=== PATIENT | female | born 1960 | race Caucasian/White ===

== ENCOUNTER → 2016-09-06 | Outpatient (CLI) | payer MEDICARE, BC ==
[~2016-09-06] MED LIST: ALBU90AE PO; CIPR500T87 PO; IPRA3AMP NEB; LETR2.5T PO; NICO1PAT4 TD; PALB125C PO; PARO10TA3 PO; PRED20TA PO; TIOT18CA INH
== END | disposition home or self-care (01) ==
LOC: ROC 12:48
PROVIDERS: ATTEND Radiology Radiation Oncology
DX: C50.912 Malignant neoplasm of unspecified site of left female breast (principal)
CPT/HCPCS: G0463

== ENCOUNTER → 2016-10-05 | Outpatient (CLI) | payer MEDICARE, BC | END | disposition home or self-care (01) | LOC: ROC 12:56 | PROVIDERS: ATTEND Radiology Radiation Oncology | DX: C50.412 Malignant neoplasm of upper-outer quadrant of left female breast (principal) | CPT/HCPCS: G0463 ==

== ENCOUNTER 2016-11-10 14:46 | Inpatient (IN) | payer MEDICARE, BC ==
[~2016-11-10] VITALS: Ht 154.9 cm; Wt 112.8 kg
[2016-11-10] MEDS ORDERED: CAPE500T24 PO (15:23)
[2016-11-10] MEDS ORDERED: ZOLP10TA PO (15:23)
[2016-11-10] MEDS ORDERED: FLUT200B IH (15:23)
[2016-11-10] MEDS ORDERED: DOXY50CA42 PO (15:23)
[2016-11-10] MEDS ORDERED: UMEC1DIS INH (15:23)
[2016-11-10] MEDS ORDERED: PRED-402 PO (15:23)
[2016-11-10] MEDS ORDERED: SODIUM CHLORIDE FLUSH 10ML SYR IVF ONE (15:30)
[2016-11-10] MEDS ORDERED: methylPREDNISolone SOD SUCC 125 MG/2 ML IVPush ONE (15:30)
[2016-11-10] MEDS ORDERED: methylPREDNISolone SOD SUCC 125 MG/2 ML ONE (15:32)
[2016-11-10 15:55] LABS: IS PT STATUS REG ER OR PRE ER? YES
[2016-11-10] MEDS ORDERED: ALBUTEROL/IPRATROPIUM 2.5MG/0.5MG, 3 ML ONE (17:07)
[2016-11-10 17:09] LABS: BLOOD UREA NITROGEN 10 mg/dL (7-18)
[2016-11-10] MEDS ORDERED: GUAIFENESIN/DM 200-20MG, 10ML UDC PO PRN (17:30)
[2016-11-10] MEDS ORDERED: BISACODYL 10 MG SUPP PR PRN (17:30)
[2016-11-10] MEDS ORDERED: ONDANSETRON 2MG/ML, 2ML IVPush PRN (17:30)
[2016-11-10] MEDS ORDERED: DOCUSATE 100 MG CAPSULE PO PRN (17:30)
[2016-11-10] MEDS ORDERED: POLYETHYLENE GLYCOL 17 GM PACKET PO PRN (17:30)
[2016-11-10] MEDS ORDERED: HYDROcodone/APAP 5/325 TABLET PO PRN (17:30)
[2016-11-10] MEDS ORDERED: ALBUTEROL/IPRATROPIUM 2.5MG/0.5MG, 3 ML NPPB PRN (18:00)
[2016-11-10] MEDS: ALBUTEROL/IPRATROPIUM 2.5MG/0.5MG, 3 ML NPPB SCH ×2 (18:00→22:00)
[2016-11-10 19:28] VITALS: BP 110/75
[2016-11-10] MEDS: DOXYCYCLINE 100 MG in DEXTROSE 5% 250 ML IV SCH (19:55)
[2016-11-10] MEDS: methylPREDNISolone SOD SUCC 125 MG/2 ML IVPush SCH (19:56)
[2016-11-10] MEDS: NICOTINE 21 MG/24 HR PATCH.TD24 TD SCH (19:58)
[2016-11-10] MEDS: ENOXAPARIN 40 MG/0.4 ML SQ SCH (19:58)
[2016-11-10] MEDS: ZOLPIDEM 10MG TABLET PO PRN (22:40)
[2016-11-11] MEDS: methylPREDNISolone SOD SUCC 125 MG/2 ML IVPush SCH ×4 (02:40→19:50)
[2016-11-11 03:04] VITALS: BP 106/68
[2016-11-11 06:23] LABS: ASPARTATE AMINO TRANSFERASE 23 U/L (15-37); BLOOD UREA NITROGEN 12 mg/dL (7-18)
[2016-11-11] MEDS: ALBUTEROL/IPRATROPIUM 2.5MG/0.5MG, 3 ML NPPB SCH ×6 (07:45→22:00)
[2016-11-11] MEDS: DOXYCYCLINE 100 MG in DEXTROSE 5% 250 ML IV SCH ×2 (08:42→19:49)
[2016-11-11] MEDS: SENNA/DOCUSATE TABLET PO SCH (08:42)
[2016-11-11] MEDS: PAROXETINE 10 MG TABLET PO SCH (08:42)
[2016-11-11] MEDS: TEMPLATE NON-FORMULARY MED. (Umeclidinium Brm/Vilanterol Tr (Anoro Ellipta 62.5-25 Mcg Inh INH SCH (08:43)
[2016-11-11] MEDS: FLUTICASONE FUROATE 200MCG/INH INH SCH (09:00)
[2016-11-11 13:52] VITALS: BP 130/58
[2016-11-11] MEDS ORDERED: ALBUTEROL/IPRATROPIUM 2.5MG/0.5MG, 3 ML ONE ×2 (18:11→21:51)
[2016-11-11] MEDS ORDERED: ALBUTEROL/IPRATROPIUM 2.5MG/0.5MG, 3 ML NPPB SCH (18:30)
[2016-11-11] MEDS ORDERED: ALBUTEROL/IPRATROPIUM 2.5MG/0.5MG, 3 ML NPPB PRN ×2 (18:30→22:00)
[2016-11-11 19:39] VITALS: BP 106/59
[2016-11-11] MEDS: GUAIFENESIN 200 MG TABLET PO SCH (19:50)
[2016-11-11] MEDS: ENOXAPARIN 40 MG/0.4 ML SQ SCH (19:50)
[2016-11-11] MEDS: NICOTINE 21 MG/24 HR PATCH.TD24 TD SCH (19:51)
[2016-11-11] MEDS: ZOLPIDEM 10MG TABLET PO PRN (22:27)
[2016-11-12 01:01] VITALS: BP 109/69
[2016-11-12] MEDS: methylPREDNISolone SOD SUCC 125 MG/2 ML IVPush SCH ×5 (02:23→23:24)
[2016-11-12] MEDS: ALBUTEROL/IPRATROPIUM 2.5MG/0.5MG, 3 ML NPPB SCH ×6 (06:52→19:10)
[2016-11-12 07:20] VITALS: BP 95/63
[2016-11-12] MEDS: FLUTICASONE FUROATE 200MCG/INH INH SCH (09:00)
[2016-11-12] MEDS: TEMPLATE NON-FORMULARY MED. (Umeclidinium Brm/Vilanterol Tr (Anoro Ellipta 62.5-25 Mcg Inh INH SCH (09:00)
[2016-11-12] MEDS: DOXYCYCLINE 100 MG in DEXTROSE 5% 250 ML IV SCH ×2 (09:12→20:52)
[2016-11-12] MEDS: SENNA/DOCUSATE TABLET PO SCH (09:12)
[2016-11-12] MEDS: GUAIFENESIN 200 MG TABLET PO SCH ×2 (09:12→20:52)
[2016-11-12] MEDS: PAROXETINE 10 MG TABLET PO SCH (09:12)
[2016-11-12 12:40] VITALS: BP 118/62
[2016-11-12 18:30] VITALS: BP 106/63
[2016-11-12] MEDS: NICOTINE 21 MG/24 HR PATCH.TD24 TD SCH (20:00)
[2016-11-12] MEDS: ENOXAPARIN 40 MG/0.4 ML SQ SCH (20:52)
[2016-11-12] MEDS: ZOLPIDEM 10MG TABLET PO PRN (23:24)
[2016-11-13 01:51] VITALS: BP 126/81
[2016-11-13 04:27] LABS: BLOOD UREA NITROGEN 14 mg/dL (7-18)
[2016-11-13] MEDS: methylPREDNISolone SOD SUCC 125 MG/2 ML IVPush SCH ×2 (05:52→12:00)
[2016-11-13 08:30] VITALS: BP 101/66
[2016-11-13] MEDS: TEMPLATE NON-FORMULARY MED. (Umeclidinium Brm/Vilanterol Tr (Anoro Ellipta 62.5-25 Mcg Inh INH SCH (08:34)
[2016-11-13] MEDS: DOXYCYCLINE 100 MG in DEXTROSE 5% 250 ML IV SCH (08:34)
[2016-11-13] MEDS: PAROXETINE 10 MG TABLET PO SCH (08:35)
[2016-11-13] MEDS: SENNA/DOCUSATE TABLET PO SCH (08:35)
[2016-11-13] MEDS: GUAIFENESIN 200 MG TABLET PO SCH (08:35)
[2016-11-13] MEDS: ALBUTEROL/IPRATROPIUM 2.5MG/0.5MG, 3 ML NPPB SCH ×2 (08:45→12:00)
[2016-11-13] MEDS ORDERED: DOCU-30 PO (11:48)
[2016-11-13] MEDS ORDERED: GUAI200T3 PO (11:48)
[2016-11-13] MEDS ORDERED: PRED5TAB PO (11:48)
[2016-11-13] MEDS ORDERED: DOXY100T PO (11:48)
[2016-11-13] MEDS ORDERED: IPRA3AMP NPPB (11:48)
[2016-11-13 13:52] VITALS: BP 111/65
[2016-11-13] MEDS: FLUTICASONE FUROATE 200MCG/INH INH SCH (14:59)
== END 2016-11-13 16:00 | disposition home or self-care (01) | DRG 189 ==
LOC: ED 16:11 → EDIP 16:53 → 3NW 18:16
PROVIDERS: ATTEND Internal Medicine
DX: J96.01 Acute respiratory failure with hypoxia (principal); J44.1 Chronic obstructive pulmonary disease with (acute) exacerbation; E87.2 Acidosis; C50.912 Malignant neoplasm of unspecified site of left female breast; D75.89 Other specified diseases of blood and blood-forming organs; E66.01 Morbid (severe) obesity due to excess calories; F17.210 Nicotine dependence, cigarettes, uncomplicated; K63.9 Disease of intestine, unspecified; F43.10 Post-traumatic stress disorder, unspecified; G47.33 Obstructive sleep apnea (adult) (pediatric); Z90.49 Acquired absence of other specified parts of digestive tract; Z80.6 Family history of leukemia; Z90.710 Acquired absence of both cervix and uterus; Z91.19 Patient's noncompliance with other medical treatment and regimen; Z92.3 Personal history of irradiation; Z71.6 Tobacco abuse counseling
CPT/HCPCS: 36415; 71010; 80048; 80053; 82040; 82607; 82746; 83605; 83735; 83880; 84443; 84484; 85025; 93005; 94640; 96374; J1650; J7060; J7620; J2930

== ENCOUNTER → 2016-12-10 | Outpatient (CLI) | payer MEDICARE, BC ==
[~2016-12-10] MED LIST changes: +CAPE500T24 PO; +DOCU-30 PO; +DOXY100T PO; +DOXY50CA42 PO; +FLUT200B IH; +GUAI200T3 PO; +IPRA3AMP NPPB; +PRED-402 PO; +PRED5TAB PO; +UMEC1DIS INH; +ZOLP10TA PO
== END | disposition home or self-care (01) ==
LOC: CFH 12:32
PROVIDERS: ATTEND Internal Medicine Hematology & Oncology
DX: R22.42 Localized swelling, mass and lump, left lower limb (principal); C50.812 Malignant neoplasm of overlapping sites of left female breast

== ENCOUNTER → 2016-12-14 | Outpatient (CLI) | payer MEDICARE, BC ==
[~2016-12-14] MED LIST changes: +OMNIPAQUE 350 MG/ML, 100ML BOTTLE ONE
== END | disposition home or self-care (01) ==
LOC: CFH 11:49
PROVIDERS: ATTEND Internal Medicine Hematology & Oncology
DX: C50.812 Malignant neoplasm of overlapping sites of left female breast (principal)
CPT/HCPCS: 71260; 74177; Q9967

== ENCOUNTER 2017-01-14 08:14 | Day surgery (SDC) | payer MEDICARE, BC ==
[~2017-01-14] VITALS: Ht 154.9 cm; Wt 107.8 kg
[~2017-01-14 08:14] MED LIST changes: -OMNIPAQUE 350 MG/ML, 100ML BOTTLE ONE
[2017-01-14] MEDS ORDERED: SODIUM CHLORIDE 0.9% 1,000 ML IV SCH ×2 (08:50→09:00)
[2017-01-14 08:51] VITALS: BP 112/55
[2017-01-14] MEDS ORDERED: CEFAZOLIN PMX 1GM/50ML 50 ML IV STA (08:54)
[2017-01-14] MEDS ORDERED: PLEASE ENTER ALLERGIES MC SCH ×2 (09:00)
[2017-01-14] MEDS ORDERED: CEFAZOLIN PMX 1GM/50ML 50 ML IV ONE (09:00)
[2017-01-14] MEDS ORDERED: PLEASE ENTER HEIGHT AND WEIGHT MC SCH (09:00)
[2017-01-14] MEDS ORDERED: LIDOCAINE 1%, 20ML ONE ×2 (09:51→11:21)
[2017-01-14] MEDS ORDERED: FENTANYL PF 100 MCG/2ML ONE (09:55)
[2017-01-14] MEDS ORDERED: MIDAZOLAM 1 MG/ML, 5ML ONE (09:55)
[2017-01-14] MEDS ORDERED: NALOXONE 1 MG/ML, 2ML ONE (09:55)
[2017-01-14] MEDS ORDERED: FLUMAZENIL 0.1 MG/1 ML, 5ML ONE (09:55)
== END 2017-01-14 13:45 | disposition home or self-care (01) ==
LOC: OUT 08:14
PROVIDERS: ATTEND Internal Medicine Hematology & Oncology
DX: C50.912 Malignant neoplasm of unspecified site of left female breast (principal); F32.9 Major depressive disorder, single episode, unspecified; F41.9 Anxiety disorder, unspecified; J43.9 Emphysema, unspecified; Z90.710 Acquired absence of both cervix and uterus; Z90.49 Acquired absence of other specified parts of digestive tract; Z98.890 Other specified postprocedural states
CPT/HCPCS: 36561; 76937; 77001; 99156; 99157; C1788; J0690; J1642; J2250; J3010; J3490; J7030; J2310

== ENCOUNTER → 2017-04-20 | Outpatient (CLI) | payer MEDICARE, BC ==
[~2017-04-20] MED LIST changes: +DOCU-131 PO; -DOCU-30 PO; +GADOBUTROL 10 MMOL/10 ML PFS ONE; +NICO-486 TD; -NICO1PAT4 TD
== END | disposition home or self-care (01) ==
LOC: RAD 10:10
PROVIDERS: ATTEND Internal Medicine Hematology & Oncology
DX: C50.812 Malignant neoplasm of overlapping sites of left female breast (principal); M54.16 Radiculopathy, lumbar region
CPT/HCPCS: 72158; A9585; J1642

== ENCOUNTER → 2017-05-12 | Outpatient (CLI) | payer MEDICARE, BC ==
[~2017-05-12] MED LIST changes: -GADOBUTROL 10 MMOL/10 ML PFS ONE
== END | disposition home or self-care (01) ==
LOC: RAD 16:43
PROVIDERS: ATTEND Nurse Practitioner Family
DX: M79.89 Other specified soft tissue disorders (principal); G89.3 Neoplasm related pain (acute) (chronic); Z85.3 Personal history of malignant neoplasm of breast

== ENCOUNTER → 2017-05-18 | Outpatient (CLI) | payer MEDICARE, BC ==
[~2017-05-18] MED LIST changes: +GADOBUTROL 10 MMOL/10 ML PFS ONE
== END | disposition home or self-care (01) ==
LOC: CFH 12:20
PROVIDERS: ATTEND Internal Medicine Hematology & Oncology
DX: C50.812 Malignant neoplasm of overlapping sites of left female breast (principal); I67.82 Cerebral ischemia; G93.89 Other specified disorders of brain
CPT/HCPCS: 70553; A9585

== ENCOUNTER → 2017-06-02 | Outpatient (CLI) | payer MEDICARE, BC ==
[~2017-06-02] MED LIST changes: +ALBU18HF INH; +CEFD300C37 PO; +FURO20TA3 PO; +GABA600T2 PO; -GADOBUTROL 10 MMOL/10 ML PFS ONE; +OMNIPAQUE 350 MG/ML, 75ML BOTTLE ONE; +ONDA8TAB15 PO; +OXYC20TA2 PO; +ZOLP5TAB6 PO
[2017-06-02 16:52] LABS: CREATININE 0.56 mg/dL (0.55-1.02)
== END | disposition home or self-care (01) ==
LOC: RAD 16:05
PROVIDERS: ATTEND Internal Medicine Hematology & Oncology
DX: C50.812 Malignant neoplasm of overlapping sites of left female breast (principal); N64.89 Other specified disorders of breast
CPT/HCPCS: 36415; 71260; 82565; Q9967

== ENCOUNTER 2017-06-03 12:15 | Inpatient (IN) | payer MEDICARE, BC ==
[~2017-06-03] VITALS: Ht 154.9 cm; Wt 104.8 kg
[~2017-06-03 12:15] MED LIST changes: -ALBU18HF INH; -CEFD300C37 PO; -FURO20TA3 PO; -GABA600T2 PO; -OMNIPAQUE 350 MG/ML, 75ML BOTTLE ONE; -ONDA8TAB15 PO; -OXYC20TA2 PO; -ZOLP5TAB6 PO
[2017-06-03] MEDS: ALBUTEROL/IPRATROPIUM 2.5MG/0.5MG, 3 ML NPPB SCH ×2 (12:49→13:12)
[2017-06-03] MEDS ORDERED: SODIUM CHLORIDE FLUSH 10ML SYR IVF ONE (13:00)
[2017-06-03] MEDS ORDERED: ALBUTEROL/IPRATROPIUM 2.5MG/0.5MG, 3 ML ONE (13:01)
[2017-06-03] MEDS ORDERED: OXYC20TA2 PO (13:03)
[2017-06-03] MEDS ORDERED: UMEC1DIS INH (13:03)
[2017-06-03] MEDS ORDERED: PARO10TA3 PO (13:03)
[2017-06-03] MEDS ORDERED: ZOLP5TAB6 PO (13:03)
[2017-06-03] MEDS ORDERED: GABA600T2 PO (13:03)
[2017-06-03] MEDS ORDERED: FURO20TA3 PO (13:03)
[2017-06-03] MEDS ORDERED: ONDA8TAB15 PO (13:03)
[2017-06-03 13:59] LABS: ALBUMIN 2.8 g/dL (3.4-5.0); ANION GAP 7 mmol/L (5-15); CALCIUM 8.7 mg/dL (8.5-10.1); CHLORIDE 105 mmol/L (98-107)
[2017-06-03 14:03] LABS: ALANINE AMINOTRANSFERASE 26 U/L (12-78); ALKALINE PHOSPHATASE 97 U/L (45-117); BILIRUBIN,TOTAL 0.5 mg/dL (0.2-1.0); CREATININE 0.63 mg/dL (0.55-1.02)
[2017-06-03 14:08] LABS: MEAN CORPUSCULAR HEMOGLOBIN 32.2 pg (27.0-34.8); MEAN CORPUSCULAR HGB CONC 33.3 g/dL (32.4-35.8); MEAN CORPUSCULAR VOLUME 96.7 fL (80-100); MEAN PLATELET VOLUME 7.5 fL (7.4-10.4); PLATELET COUNT 198 x10^3/uL (130-400); RED BLOOD COUNT 4.12 x10^6/uL (3.82-5.3); RED CELL DISTRIBUTION WIDTH 19.4 % (9.6-15.2)
[2017-06-03 14:09] LABS: MD YES
[2017-06-03 14:12] LABS: BAND#(MANUAL) 0.37 x10^3/uL; BANDS%(MANUAL) 6 % (0-7); EOS#(MANUAL) 0.06 x10^3/uL (0.0-0.4); EOS% (MANUAL) 1 % (1-7); LYMPH#(MANUAL) 0.92 x10^3/uL (1-3.4); LYMPHS% (MANUAL) 15 % (22-44); METAMYELOCYTES# (MANUAL) 0.06 x10^3/uL (0-0); METAMYELOCYTES% (MANUAL) 1 % (0-1); MONOS#(MANUAL) 0.73 x10^3/uL (0.3-2.7); MONOS% (MANUAL) 12 % (2-9); REACTIVE LYMPHS # (MANUAL) 0.06 x10^3/uL (0-0); REACTIVE LYMPHS % (MANUAL) 1 % (0-0); SEG#(MANUAL) 3.72 x10^3/uL (1.8-6.8); SEGS% (MANUAL) 61 % (42-75)
[2017-06-03 14:13] LABS: OTHER CELLS # (MANUAL) 0.18 x10^3/uL (0-0)
[2017-06-03 14:15] LABS: <PLATELET ESTIMATE> ADEQUATE; <PLT MORPHOLOGY> NORMAL PLT MORPH; OTHER CELLS % (MANUAL) 3 % (0-0)
[2017-06-03 14:16] LABS: ANISOCYTOSIS 1+; POLYCHROMASIA 1+
[2017-06-03 14:38] LABS: RAPID INFLUENZA A Negative (Negative); RAPID INFLUENZA B Negative (Negative)
[2017-06-03] MEDS ORDERED: methylPREDNISolone SOD SUCC 125 MG/2 ML IVP ONE (15:30)
[2017-06-03] MEDS ORDERED: AZITHROMYCIN 500 MG in SODIUM CHLORIDE 0.9% 250 ML IV ONE (15:30)
[2017-06-03] MEDS ORDERED: methylPREDNISolone SOD SUCC 125 MG/2 ML ONE (16:17)
[2017-06-03] MEDS ORDERED: BISACODYL 10 MG SUPP PR PRN (16:30)
[2017-06-03] MEDS ORDERED: POLYETHYLENE GLYCOL 17 GM PACKET PO PRN (16:30)
[2017-06-03] MEDS ORDERED: DOCUSATE 100 MG CAPSULE PO PRN (16:30)
[2017-06-03] MEDS ORDERED: ENOXAPARIN 40 MG/0.4 ML SQ SCH (16:30)
[2017-06-03] MEDS ORDERED: LABETALOL 5MG/ML, 20ML IVPush PRN (16:30)
[2017-06-03] MEDS ORDERED: ACETAMINOPHEN 325 MG TABLET PO PRN (16:30)
[2017-06-03] MEDS ORDERED: ONDANSETRON 2MG/ML, 2ML IVPush PRN (16:30)
[2017-06-03] MEDS ORDERED: TEMPLATE NON-FORMULARY MED. (Umeclidinium Brm/Vilanterol Tr (Anoro Ellipta 62.5-25 Mcg Inh INH SCH (16:30)
[2017-06-03] MEDS ORDERED: ZOLPIDEM 5MG TABLET PO SCH (16:30)
[2017-06-03] MEDS ORDERED: KETOROLAC 30 MG/1 ML IVPush PRN (16:30)
[2017-06-03] MEDS ORDERED: ALBUTEROL/IPRATROPIUM 2.5MG/0.5MG, 3 ML NPPB PRN (16:30)
[2017-06-03 16:53] VITALS: BP 96/64
[2017-06-03] MEDS ORDERED: CEFTRIAXONE 1,000 MG in DEXTROSE 5% 50 ML IV SCH (18:00)
[2017-06-03] MEDS: methylPREDNISolone SOD SUCC 125 MG/2 ML IVPush SCH (18:33)
[2017-06-03 18:53] VITALS: BP 86/59
[2017-06-03] MEDS: DOXYCYCLINE 100 MG in DEXTROSE 5% 250 ML IV SCH (19:37)
[2017-06-03] MEDS: GUAIFENESIN ER 600 MG TABLET PO SCH (19:37)
[2017-06-03] MEDS: SODIUM CHLORIDE FLUSH 10ML SYR IVF SCH (19:37)
[2017-06-03] MEDS: GABAPENTIN 300 MG CAPSULE PO SCH (19:37)
[2017-06-03] MEDS: OXYcodone IR 5MG TABLET PO PRN (21:56)
[2017-06-04] MEDS: methylPREDNISolone SOD SUCC 125 MG/2 ML IVPush SCH ×2 (00:15→06:06)
[2017-06-04 03:50] VITALS: BP 106/68
[2017-06-04] MEDS: OXYcodone IR 5MG TABLET PO PRN ×2 (03:57→10:17)
[2017-06-04 04:49] LABS: CHLORIDE 105 mmol/L (98-107)
[2017-06-04 04:54] LABS: ANION GAP 8 mmol/L (5-15); CALCIUM 8.7 mg/dL (8.5-10.1); CREATININE 0.75 mg/dL (0.55-1.02)
[2017-06-04] MEDS: DOXYCYCLINE 100 MG in DEXTROSE 5% 250 ML IV SCH (06:06)
[2017-06-04] MEDS ORDERED: DOXY100T PO (08:14)
[2017-06-04] MEDS ORDERED: IPRA3AMP NPPB (08:14)
[2017-06-04] MEDS ORDERED: CEFD300C37 PO (08:14)
[2017-06-04] MEDS ORDERED: ALBU18HF INH (08:14)
[2017-06-04] MEDS ORDERED: PRED20TA PO (08:14)
[2017-06-04] MEDS: GUAIFENESIN ER 600 MG TABLET PO SCH (08:17)
[2017-06-04] MEDS: GABAPENTIN 300 MG CAPSULE PO SCH (08:17)
[2017-06-04] MEDS: SODIUM CHLORIDE FLUSH 10ML SYR IVF SCH (08:18)
[2017-06-04 08:39] VITALS: BP 98/62
[2017-06-04] MEDS ORDERED: FUROSEMIDE 20 MG TABLET PO SCH (09:00)
[2017-06-04] MEDS ORDERED: PAROXETINE 10 MG TABLET PO SCH (09:00)
== END 2017-06-04 10:55 | disposition home or self-care (01) | DRG 189 ==
LOC: ED 15:16 → EDIP 15:17 → ED 15:22 → 3NW 16:50
PROVIDERS: ADMIT Family Medicine; ATTEND Family Medicine
DX: J96.21 Acute and chronic respiratory failure with hypoxia (principal); E44.0 Moderate protein-calorie malnutrition; C77.1 Secondary and unspecified malignant neoplasm of intrathoracic lymph nodes; C50.919 Malignant neoplasm of unspecified site of unspecified female breast; Z99.81 Dependence on supplemental oxygen; J44.1 Chronic obstructive pulmonary disease with (acute) exacerbation; Z68.41 Body mass index [BMI] 40.0-44.9, adult; J98.11 Atelectasis; F17.210 Nicotine dependence, cigarettes, uncomplicated; G47.33 Obstructive sleep apnea (adult) (pediatric); Z82.49 Family history of ischemic heart disease and other diseases of the circulatory system; Z85.3 Personal history of malignant neoplasm of breast; Z90.710 Acquired absence of both cervix and uterus; Z91.19 Patient's noncompliance with other medical treatment and regimen; Z98.1 Arthrodesis status; Z90.49 Acquired absence of other specified parts of digestive tract
CPT/HCPCS: 36415; 71010; 72050; 80048; 80053; 83880; 85025; 87400; 93005; 94640; 96374; 96375; J0456; J0696; J1650; J7060; J7620; J2930; J7050

== ENCOUNTER → 2017-07-11 | Outpatient (CLI) | payer MEDICARE, BC ==
[~2017-07-11] MED LIST changes: +ALBU18HF INH; +CEFD300C37 PO; +FURO20TA3 PO; +GABA600T2 PO; +ONDA8TAB15 PO; +OXYC20TA2 PO; +ZOLP5TAB6 PO
== END | disposition home or self-care (01) ==
LOC: ROC 14:02
PROVIDERS: ATTEND Radiology Radiation Oncology
DX: Z08 Encounter for follow-up examination after completed treatment for malignant neoplasm (principal); C50.912 Malignant neoplasm of unspecified site of left female breast; J44.1 Chronic obstructive pulmonary disease with (acute) exacerbation; Z92.3 Personal history of irradiation
CPT/HCPCS: G0463

== ENCOUNTER → 2017-08-22 | Outpatient (CLI) | payer MEDICARE, BC ==
[~2017-08-22] MED LIST changes: +OMNIPAQUE 350 MG/ML, 75ML BOTTLE ONE
== END | disposition home or self-care (01) ==
LOC: CFH 14:12
PROVIDERS: ATTEND Internal Medicine Hematology & Oncology
DX: J98.11 Atelectasis (principal); R91.1 Solitary pulmonary nodule; C50.812 Malignant neoplasm of overlapping sites of left female breast
CPT/HCPCS: 71260; Q9967

== ENCOUNTER → 2017-11-25 | Outpatient (CLI) | payer MEDICARE, BC ==
[~2017-11-25] MED LIST changes: -OMNIPAQUE 350 MG/ML, 75ML BOTTLE ONE
== END | disposition home or self-care (01) ==
LOC: RAD 12:05
PROVIDERS: ATTEND Internal Medicine Hematology & Oncology
DX: C50.812 Malignant neoplasm of overlapping sites of left female breast (principal); R60.0 Localized edema

== ENCOUNTER → 2017-12-20 | Outpatient (CLI) | payer MEDICARE, BC ==
[~2017-12-20] MED LIST changes: +OMNIPAQUE 350 MG/ML, 75ML BOTTLE ONE
== END | disposition home or self-care (01) ==
LOC: CFH 09:06
PROVIDERS: ATTEND Internal Medicine Hematology & Oncology
DX: C50.812 Malignant neoplasm of overlapping sites of left female breast (principal); J98.11 Atelectasis; J43.9 Emphysema, unspecified; R59.0 Localized enlarged lymph nodes
CPT/HCPCS: 71260; Q9967

== ENCOUNTER → 2018-01-26 | Outpatient (CLI) | payer MEDICARE, BC ==
[~2018-01-26] MED LIST changes: -IPRA3AMP NEB; -IPRA3AMP NPPB; +IPRA3AMP30 NEB; +IPRA3AMP30 NPPB; -OMNIPAQUE 350 MG/ML, 75ML BOTTLE ONE
== END | disposition home or self-care (01) ==
LOC: PETCFH 06:39
PROVIDERS: ATTEND Internal Medicine Hematology & Oncology
DX: C50.812 Malignant neoplasm of overlapping sites of left female breast (principal); J44.9 Chronic obstructive pulmonary disease, unspecified
CPT/HCPCS: 78815; A9552

== ENCOUNTER → 2018-02-01 | Outpatient (CLI) | payer MEDICARE, BC | END | disposition home or self-care (01) | LOC: CFH 12:29 | PROVIDERS: ATTEND Internal Medicine Hematology & Oncology | DX: I07.1 Rheumatic tricuspid insufficiency (principal); C50.812 Malignant neoplasm of overlapping sites of left female breast; J44.9 Chronic obstructive pulmonary disease, unspecified; F17.210 Nicotine dependence, cigarettes, uncomplicated | CPT/HCPCS: 93306 ==

== ENCOUNTER → 2018-05-18 | Outpatient (CLI) | payer MEDICARE, BC | END | disposition home or self-care (01) | LOC: PETCFH 09:29 | PROVIDERS: ATTEND Internal Medicine Hematology & Oncology | DX: C50.812 Malignant neoplasm of overlapping sites of left female breast (principal); J44.9 Chronic obstructive pulmonary disease, unspecified | CPT/HCPCS: 78815; A9552 ==

== ENCOUNTER → 2018-07-19 | Outpatient (CLI) | payer MEDICARE ==
[~2018-07-19] MED LIST changes: -GABA600T2 PO; +GABA600T7 PO
== END | disposition home or self-care (01) ==
LOC: CVU 15:26
PROVIDERS: ATTEND Internal Medicine Hematology & Oncology
DX: I07.1 Rheumatic tricuspid insufficiency (principal)
CPT/HCPCS: 0399T; 93306

== ENCOUNTER → 2018-08-29 | Outpatient (CLI) | payer MEDICARE | END | disposition home or self-care (01) | LOC: ROC 07:33 | PROVIDERS: ATTEND Radiology Radiation Oncology | DX: C79.31 Secondary malignant neoplasm of brain (principal); Z85.3 Personal history of malignant neoplasm of breast; Z92.3 Personal history of irradiation | CPT/HCPCS: G0463 ==

== ENCOUNTER → 2018-09-06 | Outpatient (CLI) | payer MEDICARE ==
[~2018-09-06] MED LIST changes: +FENTANYL PF 100 MCG/2ML ONE; +MIDAZOLAM 1 MG/ML, 5ML ONE; +ONDANSETRON 2MG/ML, 2ML ONE
== END | disposition home or self-care (01) ==
LOC: RAD 08:51
PROVIDERS: ATTEND Radiology Radiation Oncology
DX: S32.592A Other specified fracture of left pubis, initial encounter for closed fracture (principal); M85.88 Other specified disorders of bone density and structure, other site; S62.102S Fracture of unspecified carpal bone, left wrist, sequela; C79.31 Secondary malignant neoplasm of brain; I10 Essential (primary) hypertension; F40.240 Claustrophobia; X58.XXXA Exposure to other specified factors, initial encounter; Y93.89 Activity, other specified; Y92.89 Other specified places as the place of occurrence of the external cause; Y99.8 Other external cause status; Z87.891 Personal history of nicotine dependence
CPT/HCPCS: 72158; 72190; 73100; 99156; 99157; J1642; J2250; J2405; J3010

== ENCOUNTER 2018-09-15 06:48 | Day surgery (SDC) | payer MEDICARE ==
[~2018-09-15] VITALS: Ht 154.9 cm; Wt 88.1 kg
[~2018-09-15 06:48] MED LIST changes: -FENTANYL PF 100 MCG/2ML ONE; -MIDAZOLAM 1 MG/ML, 5ML ONE; -ONDANSETRON 2MG/ML, 2ML ONE
[2018-09-15 07:20] VITALS: BP 130/74
[2018-09-15] MEDS ORDERED: LACTATED RINGERS 1,000 ML IV SCH (07:23)
[2018-09-15 08:44] LABS: ALBUMIN 3.3 g/dL (3.4-5.0); CALCIUM 9.3 mg/dL (8.5-10.1); CHLORIDE 108 mmol/L (98-107)
[2018-09-15 08:48] LABS: ALANINE AMINOTRANSFERASE 21 U/L (12-78); ALKALINE PHOSPHATASE 124 U/L (45-117); ANION GAP 8 mmol/L (5-15); BILIRUBIN,TOTAL 0.4 mg/dL (0.2-1.0); CREATININE 0.64 mg/dL (0.55-1.02); TOTAL PROTEIN 6.7 g/dL (6.4-8.2)
[2018-09-15] MEDS ORDERED: SUCCINYLCHOLINE 20 MG/ML, 10ML ONE (08:58)
[2018-09-15] MEDS ORDERED: DEXAMETHASONE 4 MG/ML, 1ML ONE (08:58)
[2018-09-15] MEDS ORDERED: PROPOFOL 10 MG/ML, 20ML ONE (08:58)
[2018-09-15] MEDS ORDERED: ONDANSETRON 2MG/ML, 2ML ONE (08:58)
[2018-09-15] MEDS ORDERED: ROCURONIUM 10 MG/ML,10ML ONE (08:58)
[2018-09-15] MEDS ORDERED: MIDAZOLAM 1 MG/ML, 2ML ONE (10:46)
[2018-09-15] MEDS ORDERED: GADOBUTROL 10 MMOL/10 ML PFS ONE (10:59)
[2018-09-15] MEDS ORDERED: HYDROmorphone 2 MG/ML, 1ML IVPush PRN (12:00)
[2018-09-15] MEDS ORDERED: HALOPERIDOL 5 MG/ML IV PRN (12:00)
[2018-09-15] MEDS ORDERED: OXYcodone 5 MG/5 ML ORAL.SOL UDC PO PRN (12:00)
[2018-09-15] MEDS ORDERED: LABETALOL 5MG/ML, 20ML IV PRN (12:00)
[2018-09-15] MEDS ORDERED: DIAZEPAM 5 MG/ML, 2ML IVPush PRN (12:00)
[2018-09-15] MEDS ORDERED: ONDANSETRON ODT 8 MG PO PRN (12:00)
[2018-09-15] MEDS ORDERED: ACETAMINOPHEN 325 MG TABLET PO PRN (12:00)
[2018-09-15] MEDS ORDERED: ONDANSETRON 2MG/ML, 2ML IV PRN (12:00)
[2018-09-15] MEDS ORDERED: PROMETHAZINE 25 MG/ML, 1ML IV PRN (12:00)
[2018-09-15] MEDS ORDERED: hydrALAzine 20 MG/ML, 1ML IV PRN (12:00)
[2018-09-15] MEDS ORDERED: MORPHINE SULFATE 4 MG/ML, 1ML IVPush PRN (12:00)
[2018-09-15] MEDS ORDERED: MEPERIDINE/PF 25MG/0.5ML IVPush PRN (12:00)
[2018-09-15] MEDS ORDERED: EPHEDRINE 50 MG/ML, 1ML IVPush PRN (12:00)
[2018-09-15] MEDS ORDERED: PROMETHAZINE 12.5 MG SUPP PR PRN (12:00)
[2018-09-15] MEDS ORDERED: ALBUTEROL SULFATE 2.5 MG/3 ML NPPB PRN (12:00)
[2018-09-15] MEDS ORDERED: MIDAZOLAM 1 MG/ML, 2ML IV PRN (12:00)
[2018-09-15] MEDS ORDERED: OXYcodone 5 MG/5 ML ORAL.SOL UDC ONE (12:26)
[2018-09-15] MEDS ORDERED: FENTANYL PF 100 MCG/2ML ONE (12:26)
[2018-09-15] MEDS: FENTANYL PF 100 MCG/2ML IV PRN ×2 (12:28→12:34)
[2018-09-15] MEDS ORDERED: MORPHINE SULFATE 4 MG/ML, 1ML ONE (12:30)
== END 2018-09-15 14:25 | disposition home or self-care (01) ==
LOC: OUT 06:48 → EDSTATUS 09:00 → OUT 14:25
PROVIDERS: ATTEND Radiology Radiation Oncology
DX: C79.31 Secondary malignant neoplasm of brain (principal); M51.34 Other intervertebral disc degeneration, thoracic region
CPT/HCPCS: 36415; 72156; 72157; 72158; 80053; A9585; J0330; J1100; J2250; J2405; J2704; J3010

== ENCOUNTER → 2018-10-06 | Outpatient (CLI) | payer MEDICARE | END | disposition home or self-care (01) | LOC: CFH 12:03 | PROVIDERS: ATTEND Radiology Radiation Oncology | DX: C50.412 Malignant neoplasm of upper-outer quadrant of left female breast (principal); M79.602 Pain in left arm; R04.2 Hemoptysis | CPT/HCPCS: 71046 ==

== ENCOUNTER 2018-10-10 07:59 | Outpatient (CLI) | payer MEDICARE | END 2018-10-10 23:59 | disposition home or self-care (01) | LOC: ROC 07:59 | PROVIDERS: ATTEND Radiology Radiation Oncology | DX: Z02.9 Encounter for administrative examinations, unspecified (principal) ==

== ENCOUNTER 2018-10-10 12:55 | Inpatient (IN) | payer MEDICARE ==
[~2018-10-10] VITALS: Ht 154.9 cm; Wt 90.2 kg
[2018-10-10] MEDS ORDERED: DOCUSATE 100 MG CAPSULE PO PRN (15:00)
[2018-10-10] MEDS ORDERED: OXYcodone IR 5MG TABLET PO PRN (15:00)
[2018-10-10] MEDS ORDERED: POLYETHYLENE GLYCOL 17 GM PACKET PO PRN (15:00)
[2018-10-10] MEDS ORDERED: hydrALAzine 20 MG/ML, 1ML IVPush PRN (15:00)
[2018-10-10] MEDS ORDERED: BISACODYL 10 MG SUPP PR PRN (15:00)
[2018-10-10] MEDS ORDERED: PROMETHAZINE 25 MG/ML, 1ML IM PRN (15:00)
[2018-10-10] MEDS ORDERED: ACETAMINOPHEN 325 MG TABLET PO PRN (15:00)
[2018-10-10] MEDS ORDERED: LABETALOL 5 MG/ML SYRINGE IVPush PRN (15:00)
[2018-10-10 15:31] LABS: BASOPHILS # (AUTO) 0.02 x10^3/uL (0-0.1); BASOPHILS % (AUTO) 0 % (0-1); EOSINOPHILS # (AUTO) 0.08 x10^3/uL (0-0.4); EOSINOPHILS % (AUTO) 2 % (1-7); LYMPHOCYTES % (AUTO) 7 % (22-44); MD NO; MEAN CORPUSCULAR HEMOGLOBIN 32.2 pg (27.0-34.8); MEAN CORPUSCULAR HGB CONC 34.8 g/dL (32.4-35.8); MEAN CORPUSCULAR VOLUME 92.6 fL (80-100); MEAN PLATELET VOLUME 7.5 fL (7.4-10.4); MONOCYTES # (AUTO) 0.58 x10^3/uL (0.2-0.8); MONOCYTES % (AUTO) 13 % (2-9); NEUTROPHILS # (AUTO) 3.35 x10^3/uL (1.8-6.8); NEUTROPHILS % (AUTO) 77 % (42-75); PLATELET COUNT 167 x10^3/uL (130-400); RED BLOOD COUNT 4.37 x10^6/uL (3.82-5.3); RED CELL DISTRIBUTION WIDTH 13.2 % (9.6-15.2)
[2018-10-10 15:32] LABS: PROTHROMBIN TIME 10.5 Seconds (9.6-11.5)
[2018-10-10 15:38] LABS: ANION GAP 12 mmol/L (5-15); CALCIUM 8.8 mg/dL (8.5-10.1); CHLORIDE 107 mmol/L (98-107); CREATININE 0.48 mg/dL (0.55-1.02)
[2018-10-10 15:47] LABS: FREE T4 (FREE THYROXINE) 2.89 ng/dL (0.76-1.46)
[2018-10-10] MEDS: GABAPENTIN 300 MG CAPSULE PO SCH ×2 (16:00→19:51)
[2018-10-10] MEDS: NICOTINE 7 MG/24 HR PATCH.TD24 TD SCH (16:20)
[2018-10-10] MEDS: SODIUM CHLORIDE 0.9% 1,000 ML IV SCH (16:25)
[2018-10-10 16:26] VITALS: BP 120/72
[2018-10-10] MEDS ORDERED: POTASSIUM CHLORIDE 40 MEQ in SODIUM CHLORIDE 0.9% 500 ML IV ONE (17:00)
[2018-10-10] MEDS: SUCRALFATE 1 GM/10 ML UDC PO SCH ×2 (17:25→19:51)
[2018-10-10] MEDS: ONDANSETRON ODT 4 MG PO PRN (17:30)
[2018-10-10] MEDS: morphine SULFATE 10 MG/ML, 1ML IVPush PRN ×3 (17:30→21:09)
[2018-10-10 18:18] LABS: ALANINE AMINOTRANSFERASE 14 U/L (12-78); ALBUMIN 3.1 g/dL (3.4-5.0)
[2018-10-10 18:20] LABS: ALKALINE PHOSPHATASE 105 U/L (45-117); BILIRUBIN,TOTAL 0.3 mg/dL (0.2-1.0); TOTAL PROTEIN 6.5 g/dL (6.4-8.2)
[2018-10-10 18:21] LABS: BILIRUBIN, DIRECT < 0.1 mg/dL (0.1-0.2); BILIRUBIN,INDIRECT 0.2 mg/dL (0.0-2.0)
[2018-10-10] MEDS ORDERED: OMNIPAQUE 350 MG/ML, 100ML BOTTLE ONE (18:48)
[2018-10-10 19:30] VITALS: BP 99/66
[2018-10-11] MEDS: morphine SULFATE 10 MG/ML, 1ML IVPush PRN ×2 (00:13→00:47)
[2018-10-11] MEDS: ONDANSETRON ODT 4 MG PO PRN ×2 (00:13→07:39)
[2018-10-11 01:06] VITALS: BP 103/67
[2018-10-11] MEDS ORDERED: morphine SULFATE 10 MG/ML, 1ML IVPush ONE (03:00)
[2018-10-11] MEDS: HYDROmorphone 2 MG/ML, 1ML IV PRN ×4 (04:58→12:14)
[2018-10-11 05:52] LABS: BASOPHILS # (AUTO) 0.02 x10^3/uL (0-0.1); BASOPHILS % (AUTO) 1 % (0-1); EOSINOPHILS # (AUTO) 0.11 x10^3/uL (0-0.4); EOSINOPHILS % (AUTO) 3 % (1-7); LYMPHOCYTES # (AUTO) 0.27 x10^3/uL (1-3.4); LYMPHOCYTES % (AUTO) 7 % (22-44); MD NO; MEAN CORPUSCULAR HEMOGLOBIN 32.5 pg (27.0-34.8); MEAN CORPUSCULAR HGB CONC 35.3 g/dL (32.4-35.8); MEAN CORPUSCULAR VOLUME 92.3 fL (80-100); MEAN PLATELET VOLUME 7.4 fL (7.4-10.4); MONOCYTES # (AUTO) 0.55 x10^3/uL (0.2-0.8); MONOCYTES % (AUTO) 15 % (2-9); NEUTROPHILS % (AUTO) 74 % (42-75); PLATELET COUNT 160 x10^3/uL (130-400); RED CELL DISTRIBUTION WIDTH 13.3 % (9.6-15.2)
[2018-10-11 06:02] LABS: ALBUMIN 2.8 g/dL (3.4-5.0); CALCIUM 8.6 mg/dL (8.5-10.1); CHLORIDE 112 mmol/L (98-107)
[2018-10-11 06:07] LABS: ALANINE AMINOTRANSFERASE 13 U/L (12-78); ALKALINE PHOSPHATASE 97 U/L (45-117); ANION GAP 8 mmol/L (5-15); BILIRUBIN,TOTAL 0.6 mg/dL (0.2-1.0); TOTAL PROTEIN 5.9 g/dL (6.4-8.2)
[2018-10-11] MEDS: PANTOPRAZOLE 40 MG IV IVPush SCH (07:39)
[2018-10-11] MEDS: PAROXETINE 10 MG TABLET PO SCH (07:40)
[2018-10-11] MEDS: GABAPENTIN 300 MG CAPSULE PO SCH ×3 (07:40→19:35)
[2018-10-11] MEDS: SUCRALFATE 1 GM/10 ML UDC PO SCH ×4 (07:40→19:35)
[2018-10-11 08:40] VITALS: BP 116/72
[2018-10-11] MEDS: IPRATROPIUM 0.5 MG/2.5 ML INHA NPPB SCH (09:00)
[2018-10-11] MEDS: DEXAMETHASONE 4 MG/ML, 1ML IV SCH ×2 (09:39→16:06)
[2018-10-11] MEDS: FLUCONAZOLE 400 MG/200 ML 200 ML IV SCH (09:39)
[2018-10-11] MEDS: SODIUM CHLORIDE 0.9% 1,000 ML IV SCH ×2 (09:39→21:05)
[2018-10-11 12:44] VITALS: BP 114/76
[2018-10-11] MEDS: HYDROmorphone PCA 30 MG/30 ML IV PRN (13:40)
[2018-10-11] MEDS: NICOTINE 7 MG/24 HR PATCH.TD24 TD SCH (16:09)
[2018-10-11 19:06] VITALS: BP 108/69
[2018-10-11] MEDS: MELATONIN 5 MG TABLET PO PRN (21:05)
[2018-10-12 00:41] VITALS: BP 126/73
[2018-10-12] MEDS: DEXAMETHASONE 4 MG/ML, 1ML IV SCH ×3 (00:51→16:59)
[2018-10-12 06:29] LABS: ALBUMIN 2.8 g/dL (3.4-5.0); ANION GAP 13 mmol/L (5-15); CALCIUM 8.8 mg/dL (8.5-10.1); CHLORIDE 112 mmol/L (98-107); CREATININE 0.45 mg/dL (0.55-1.02)
[2018-10-12 08:00] VITALS: BP 101/50
[2018-10-12] MEDS: PANTOPRAZOLE 40 MG IV IVPush SCH (08:59)
[2018-10-12] MEDS: SUCRALFATE 1 GM/10 ML UDC PO SCH ×4 (08:59→22:05)
[2018-10-12] MEDS: PAROXETINE 10 MG TABLET PO SCH (08:59)
[2018-10-12] MEDS: IPRATROPIUM 0.5 MG/2.5 ML INHA NPPB SCH (09:00)
[2018-10-12] MEDS: GABAPENTIN 300 MG CAPSULE PO SCH ×3 (09:20→22:05)
[2018-10-12] MEDS: FLUCONAZOLE 400 MG/200 ML 200 ML IV SCH (10:06)
[2018-10-12] MEDS: SODIUM CHLORIDE 0.9% 1,000 ML IV SCH (10:11)
[2018-10-12 12:43] VITALS: BP 100/55
[2018-10-12 14:39] VITALS: BP 97/57
[2018-10-12] MEDS: HYDROmorphone PCA 30 MG/30 ML IV PRN (15:33)
[2018-10-12] MEDS: NICOTINE 7 MG/24 HR PATCH.TD24 TD SCH (16:07)
[2018-10-12] MEDS ORDERED: ZOLEDRONIC ACID 4MG/100ML 100 ML IV ONE (16:30)
[2018-10-12] MEDS ORDERED: ZOLEDRONIC ACID 4 MG in SODIUM CHLORIDE 0.9% 100 ML IV ONE (16:43)
[2018-10-12] MEDS ORDERED: CATHFLO-ALTEPLASE 2 MG/2 ML CATHFLUSH ONE (17:30)
[2018-10-12 19:28] VITALS: BP 95/61
[2018-10-12] MEDS: MELATONIN 5 MG TABLET PO PRN (23:33)
[2018-10-13] MEDS: SODIUM CHLORIDE 0.9% 1,000 ML IV SCH ×2 (00:40→17:02)
[2018-10-13] MEDS: DEXAMETHASONE 4 MG/ML, 1ML IV SCH ×3 (00:40→16:57)
[2018-10-13 00:59] VITALS: BP 95/55
[2018-10-13 04:56] LABS: CHLORIDE 113 mmol/L (98-107)
[2018-10-13 04:59] LABS: ALBUMIN 2.6 g/dL (3.4-5.0); ANION GAP 7 mmol/L (5-15); CALCIUM 8.3 mg/dL (8.5-10.1); CREATININE 0.46 mg/dL (0.55-1.02)
[2018-10-13] MEDS: SUCRALFATE 1 GM/10 ML UDC PO SCH ×4 (08:37→20:43)
[2018-10-13] MEDS: GABAPENTIN 300 MG CAPSULE PO SCH ×3 (08:37→20:43)
[2018-10-13] MEDS: PANTOPRAZOLE 40 MG IV IVPush SCH (08:37)
[2018-10-13] MEDS: PAROXETINE 10 MG TABLET PO SCH (08:37)
[2018-10-13 09:00] VITALS: BP 97/56
[2018-10-13] MEDS: IPRATROPIUM 0.5 MG/2.5 ML INHA NPPB SCH (10:25)
[2018-10-13] MEDS ORDERED: IPRATROPIUM 0.5 MG/2.5 ML INHA NPPB PRN (10:30)
[2018-10-13] MEDS: FLUCONAZOLE 400 MG/200 ML 200 ML IV SCH (10:32)
[2018-10-13] MEDS ORDERED: SODIUM CHLORIDE 0.9% IV ONE (11:00)
[2018-10-13] MEDS ORDERED: CARBOPLATIN IV ONE (11:00)
[2018-10-13] MEDS: ONDANSETRON 12 MG in SODIUM CHLORIDE 0.9% 50 ML IVPB ONE ×2 (12:00→12:31)
[2018-10-13 14:29] VITALS: BP 95/58
[2018-10-13] MEDS: NICOTINE 7 MG/24 HR PATCH.TD24 TD SCH (16:57)
[2018-10-13 19:57] VITALS: BP 101/60
[2018-10-13] MEDS ORDERED: CALCIUM CARBONATE 500 MG TAB.CHEW PO PRN (20:30)
[2018-10-13] MEDS: MELATONIN 5 MG TABLET PO PRN (20:43)
[2018-10-13] MEDS: HYDROmorphone PCA 30 MG/30 ML IV PRN (20:50)
[2018-10-14] MEDS: DEXAMETHASONE 4 MG/ML, 1ML IV SCH ×3 (01:35→17:24)
[2018-10-14 01:58] VITALS: BP 114/73
[2018-10-14 05:41] LABS: ALBUMIN 2.7 g/dL (3.4-5.0); ANION GAP 4 mmol/L (5-15); CALCIUM 7.8 mg/dL (8.5-10.1); CHLORIDE 117 mmol/L (98-107); CREATININE 0.43 mg/dL (0.55-1.02)
[2018-10-14] MEDS: SODIUM CHLORIDE 0.9% 1,000 ML IV SCH ×2 (06:04→22:00)
[2018-10-14 08:40] VITALS: BP 104/68
[2018-10-14] MEDS: SUCRALFATE 1 GM/10 ML UDC PO SCH ×4 (08:47→20:30)
[2018-10-14] MEDS: PANTOPRAZOLE 40 MG IV IVPush SCH (08:48)
[2018-10-14] MEDS: PAROXETINE 10 MG TABLET PO SCH (08:49)
[2018-10-14] MEDS: GABAPENTIN 300 MG CAPSULE PO SCH ×3 (08:49→20:30)
[2018-10-14] MEDS: FLUCONAZOLE 400 MG/200 ML 200 ML IV SCH (10:00)
[2018-10-14 13:22] VITALS: BP 107/55
[2018-10-14] MEDS: NICOTINE 7 MG/24 HR PATCH.TD24 TD SCH (17:24)
[2018-10-14] MEDS: MELATONIN 5 MG TABLET PO PRN (20:30)
[2018-10-14 20:32] VITALS: BP 110/72
[2018-10-15 00:55] VITALS: BP 120/77
[2018-10-15] MEDS: DEXAMETHASONE 4 MG/ML, 1ML IV SCH ×3 (00:59→16:33)
[2018-10-15 05:33] LABS: BASOPHILS % (AUTO) 0 % (0-1); EOSINOPHILS % (AUTO) 0 % (1-7); LYMPHOCYTES # (AUTO) 0.11 x10^3/uL (1-3.4); LYMPHOCYTES % (AUTO) 2 % (22-44); MD NO; MEAN CORPUSCULAR HEMOGLOBIN 32.2 pg (27.0-34.8); MEAN CORPUSCULAR HGB CONC 34.4 g/dL (32.4-35.8); MEAN CORPUSCULAR VOLUME 93.7 fL (80-100); MEAN PLATELET VOLUME 8.4 fL (7.4-10.4); MONOCYTES # (AUTO) 0.44 x10^3/uL (0.2-0.8); MONOCYTES % (AUTO) 9 % (2-9); NEUTROPHILS # (AUTO) 4.17 x10^3/uL (1.8-6.8); NEUTROPHILS % (AUTO) 88 % (42-75); PLATELET COUNT 123 x10^3/uL (130-400); RED BLOOD COUNT 3.76 x10^6/uL (3.82-5.3); RED CELL DISTRIBUTION WIDTH 13.6 % (9.6-15.2)
[2018-10-15 05:34] LABS: CHLORIDE 113 mmol/L (98-107)
[2018-10-15 05:42] LABS: ALANINE AMINOTRANSFERASE 51 U/L (12-78); ALBUMIN 2.6 g/dL (3.4-5.0); ALKALINE PHOSPHATASE 71 U/L (45-117); ANION GAP 6 mmol/L (5-15); BILIRUBIN,TOTAL 0.3 mg/dL (0.2-1.0); CALCIUM 7.5 mg/dL (8.5-10.1); CREATININE 0.46 mg/dL (0.55-1.02); TOTAL PROTEIN 5.1 g/dL (6.4-8.2)
[2018-10-15] MEDS: SUCRALFATE 1 GM/10 ML UDC PO SCH ×4 (08:00→21:29)
[2018-10-15] MEDS: PANTOPRAZOLE 40 MG IV IVPush SCH (08:00)
[2018-10-15 08:05] VITALS: BP 107/71
[2018-10-15] MEDS ORDERED: ANORO ELLIPTA INH PRN ×2 (10:30→11:00)
[2018-10-15] MEDS: GABAPENTIN 300 MG CAPSULE PO SCH ×3 (10:32→21:29)
[2018-10-15] MEDS: PAROXETINE 10 MG TABLET PO SCH (10:32)
[2018-10-15] MEDS: FLUCONAZOLE 400 MG/200 ML 200 ML IV SCH (10:32)
[2018-10-15] MEDS: NEUTRA PHOS K 250 MG TABLET PO SCH ×3 (10:32→21:29)
[2018-10-15] MEDS: SODIUM CHLORIDE 0.9% 1,000 ML IV SCH (10:39)
[2018-10-15] MEDS: ALBUTEROL/IPRATROPIUM 2.5MG/0.5MG, 3 ML NPPB SCH ×3 (11:00→20:45)
[2018-10-15] MEDS: HYDROmorphone PCA 30 MG/30 ML IV PRN (13:10)
[2018-10-15 16:07] VITALS: BP 98/64
[2018-10-15] MEDS: NICOTINE 7 MG/24 HR PATCH.TD24 TD SCH (16:37)
[2018-10-15] MEDS: MELATONIN 5 MG TABLET PO PRN (21:29)
[2018-10-15 21:38] VITALS: BP 121/68
[2018-10-16] MEDS: DEXAMETHASONE 4 MG/ML, 1ML IV SCH ×3 (01:45→17:45)
[2018-10-16] MEDS: SODIUM CHLORIDE 0.9% 1,000 ML IV SCH ×2 (01:45→17:45)
[2018-10-16 02:19] VITALS: BP 104/68
[2018-10-16] MEDS: ALBUTEROL/IPRATROPIUM 2.5MG/0.5MG, 3 ML NPPB SCH (02:41)
[2018-10-16 06:08] LABS: BASOPHILS % (AUTO) 0 % (0-1); EOSINOPHILS % (AUTO) 0 % (1-7); LYMPHOCYTES # (AUTO) 0.07 x10^3/uL (1-3.4); LYMPHOCYTES % (AUTO) 2 % (22-44); MD NO; MEAN CORPUSCULAR HEMOGLOBIN 32.2 pg (27.0-34.8); MEAN CORPUSCULAR HGB CONC 34.5 g/dL (32.4-35.8); MEAN CORPUSCULAR VOLUME 93.3 fL (80-100); MEAN PLATELET VOLUME 8.2 fL (7.4-10.4); MONOCYTES # (AUTO) 0.51 x10^3/uL (0.2-0.8); MONOCYTES % (AUTO) 11 % (2-9); NEUTROPHILS # (AUTO) 4.04 x10^3/uL (1.8-6.8); NEUTROPHILS % (AUTO) 87 % (42-75); PLATELET COUNT 132 x10^3/uL (130-400); RED BLOOD COUNT 3.97 x10^6/uL (3.82-5.3); RED CELL DISTRIBUTION WIDTH 13.9 % (9.6-15.2)
[2018-10-16 06:20] LABS: ALANINE AMINOTRANSFERASE 70 U/L (12-78); ALBUMIN 2.6 g/dL (3.4-5.0); ANION GAP 5 mmol/L (5-15); CALCIUM 7.4 mg/dL (8.5-10.1); CHLORIDE 110 mmol/L (98-107); CREATININE 0.45 mg/dL (0.55-1.02)
[2018-10-16 06:22] LABS: ALKALINE PHOSPHATASE 67 U/L (45-117); BILIRUBIN,TOTAL 0.3 mg/dL (0.2-1.0); TOTAL PROTEIN 5.4 g/dL (6.4-8.2)
[2018-10-16] MEDS: PANTOPROZOLE 40MG TABLET PO SCH (06:40)
[2018-10-16 07:00] VITALS: BP 130/75
[2018-10-16] MEDS: GABAPENTIN 300 MG CAPSULE PO SCH ×3 (08:24→19:54)
[2018-10-16] MEDS: PAROXETINE 10 MG TABLET PO SCH (08:24)
[2018-10-16] MEDS: SUCRALFATE 1 GM/10 ML UDC PO SCH ×4 (08:24→19:54)
[2018-10-16] MEDS ORDERED: SODIUM PHOSPHATE 4 MEQ/ML IV SCH (08:30)
[2018-10-16] MEDS ORDERED: POTASSIUM CHLORIDE 20 MEQ TAB.ER.PRT PO ONE ×2 (08:30→11:30)
[2018-10-16] MEDS ORDERED: SODIUM PHOSPHATE 30 MMOL in SODIUM CHLORIDE 0.9% 500 ML IV ONE (08:30)
[2018-10-16] MEDS: FLUCONAZOLE 400 MG/200 ML 200 ML IV SCH (10:39)
[2018-10-16 11:27] VITALS: BP 112/68
[2018-10-16] MEDS: NICOTINE 7 MG/24 HR PATCH.TD24 TD SCH (17:56)
[2018-10-16 19:44] VITALS: BP 106/73
[2018-10-16] MEDS: MELATONIN 5 MG TABLET PO PRN (19:54)
[2018-10-17] MEDS: DEXAMETHASONE 4 MG/ML, 1ML IV SCH ×3 (01:00→17:05)
[2018-10-17 01:31] VITALS: BP 132/81
[2018-10-17] MEDS: HYDROmorphone PCA 30 MG/30 ML IV PRN (03:30)
[2018-10-17 04:14] LABS: BASOPHILS % (AUTO) 0 % (0-1); EOSINOPHILS % (AUTO) 0 % (1-7); LYMPHOCYTES # (AUTO) 0.05 x10^3/uL (1-3.4); LYMPHOCYTES % (AUTO) 1 % (22-44); MD NO; MEAN CORPUSCULAR HEMOGLOBIN 31.9 pg (27.0-34.8); MEAN CORPUSCULAR HGB CONC 34.2 g/dL (32.4-35.8); MEAN CORPUSCULAR VOLUME 93.3 fL (80-100); MEAN PLATELET VOLUME 8.1 fL (7.4-10.4); MONOCYTES % (AUTO) 9 % (2-9); NEUTROPHILS # (AUTO) 4.23 x10^3/uL (1.8-6.8); NEUTROPHILS % (AUTO) 90 % (42-75); PLATELET COUNT 141 x10^3/uL (130-400); RED BLOOD COUNT 4.08 x10^6/uL (3.82-5.3); RED CELL DISTRIBUTION WIDTH 13.6 % (9.6-15.2)
[2018-10-17 04:23] LABS: ALANINE AMINOTRANSFERASE 86 U/L (12-78); ANION GAP 6 mmol/L (5-15); CALCIUM 7.2 mg/dL (8.5-10.1); CHLORIDE 111 mmol/L (98-107); CREATININE 0.42 mg/dL (0.55-1.02)
[2018-10-17 04:25] LABS: ALBUMIN 2.7 g/dL (3.4-5.0); ALKALINE PHOSPHATASE 68 U/L (45-117); BILIRUBIN,TOTAL 0.3 mg/dL (0.2-1.0); TOTAL PROTEIN 5.2 g/dL (6.4-8.2)
[2018-10-17] MEDS: SUCRALFATE 1 GM/10 ML UDC PO SCH ×4 (06:05→21:20)
[2018-10-17] MEDS: PANTOPROZOLE 40MG TABLET PO SCH (06:05)
[2018-10-17] MEDS: SODIUM CHLORIDE 0.9% 1,000 ML IV SCH (06:05)
[2018-10-17 07:55] VITALS: BP 113/75
[2018-10-17] MEDS: GABAPENTIN 300 MG CAPSULE PO SCH ×3 (08:35→21:20)
[2018-10-17] MEDS: PAROXETINE 10 MG TABLET PO SCH (08:35)
[2018-10-17] MEDS ORDERED: FUROSEMIDE 20 MG/2 ML IV ONE (09:30)
[2018-10-17] MEDS: FLUCONAZOLE 400 MG/200 ML 200 ML IV SCH (10:30)
[2018-10-17 13:33] VITALS: BP 90/57
[2018-10-17] MEDS: NICOTINE 7 MG/24 HR PATCH.TD24 TD SCH (18:06)
[2018-10-17 20:06] VITALS: BP 101/67
[2018-10-18] MEDS: DEXAMETHASONE 4 MG/ML, 1ML IV SCH ×3 (00:54→17:07)
[2018-10-18 02:43] VITALS: BP 109/72
[2018-10-18 04:25] LABS: BASOPHILS % (AUTO) 0 % (0-1); EOSINOPHILS % (AUTO) 0 % (1-7); LYMPHOCYTES # (AUTO) 0.06 x10^3/uL (1-3.4); LYMPHOCYTES % (AUTO) 1 % (22-44); MD NO; MEAN CORPUSCULAR HEMOGLOBIN 32.4 pg (27.0-34.8); MEAN CORPUSCULAR HGB CONC 34.7 g/dL (32.4-35.8); MEAN CORPUSCULAR VOLUME 93.5 fL (80-100); MEAN PLATELET VOLUME 7.7 fL (7.4-10.4); MONOCYTES # (AUTO) 0.25 x10^3/uL (0.2-0.8); MONOCYTES % (AUTO) 5 % (2-9); NEUTROPHILS # (AUTO) 4.38 x10^3/uL (1.8-6.8); NEUTROPHILS % (AUTO) 93 % (42-75); PLATELET COUNT 129 x10^3/uL (130-400); RED BLOOD COUNT 3.97 x10^6/uL (3.82-5.3); RED CELL DISTRIBUTION WIDTH 13.7 % (9.6-15.2)
[2018-10-18 04:33] LABS: ALANINE AMINOTRANSFERASE 74 U/L (12-78); ALBUMIN 2.5 g/dL (3.4-5.0); ANION GAP 3 mmol/L (5-15); CALCIUM 7.3 mg/dL (8.5-10.1); CHLORIDE 110 mmol/L (98-107); CREATININE 0.49 mg/dL (0.55-1.02)
[2018-10-18 04:36] LABS: ALKALINE PHOSPHATASE 65 U/L (45-117); BILIRUBIN,TOTAL 0.2 mg/dL (0.2-1.0); TOTAL PROTEIN 5.1 g/dL (6.4-8.2)
[2018-10-18] MEDS: PANTOPROZOLE 40MG TABLET PO SCH (06:09)
[2018-10-18] MEDS: SUCRALFATE 1 GM/10 ML UDC PO SCH ×4 (06:17→20:56)
[2018-10-18 07:46] VITALS: BP 122/79
[2018-10-18] MEDS: PAROXETINE 10 MG TABLET PO SCH (09:29)
[2018-10-18] MEDS: GABAPENTIN 300 MG CAPSULE PO SCH ×3 (09:29→20:56)
[2018-10-18] MEDS: ONDANSETRON ODT 4 MG PO PRN (09:29)
[2018-10-18 12:54] VITALS: BP 84/53
[2018-10-18] MEDS: NICOTINE 7 MG/24 HR PATCH.TD24 TD SCH ×2 (16:38→17:07)
[2018-10-18 20:10] VITALS: BP 130/80
[2018-10-19] MEDS: DEXAMETHASONE 4 MG/ML, 1ML IV SCH ×3 (01:13→18:23)
[2018-10-19] MEDS: HYDROmorphone PCA 30 MG/30 ML IV PRN (05:14)
[2018-10-19] MEDS: SUCRALFATE 1 GM/10 ML UDC PO SCH ×4 (06:34→21:34)
[2018-10-19] MEDS: PANTOPROZOLE 40MG TABLET PO SCH (06:34)
[2018-10-19 08:55] VITALS: BP 96/92
[2018-10-19] MEDS: ONDANSETRON ODT 4 MG PO PRN (09:34)
[2018-10-19] MEDS: NEUTRA PHOS K 250 MG TABLET PO SCH ×3 (09:34→21:34)
[2018-10-19] MEDS: PAROXETINE 10 MG TABLET PO SCH (09:34)
[2018-10-19] MEDS: GABAPENTIN 300 MG CAPSULE PO SCH ×3 (09:35→21:34)
[2018-10-19 14:55] VITALS: BP 97/65
[2018-10-19] MEDS ORDERED: HYDROmorphone PCA 30 MG/30 ML IV PRN (16:30)
[2018-10-19] MEDS: NICOTINE 7 MG/24 HR PATCH.TD24 TD SCH (18:23)
[2018-10-19 19:41] VITALS: BP 95/60
[2018-10-19] MEDS: HYDROmorphone 2MG TABLET PO PRN (22:52)
[2018-10-19] MEDS: MELATONIN 5 MG TABLET PO PRN (23:08)
[2018-10-20 02:00] VITALS: BP 97/62
[2018-10-20] MEDS: DEXAMETHASONE 4 MG/ML, 1ML IV SCH ×2 (02:36→10:17)
[2018-10-20] MEDS: PANTOPROZOLE 40MG TABLET PO SCH (06:04)
[2018-10-20] MEDS: GABAPENTIN 300 MG CAPSULE PO SCH ×4 (06:04→20:57)
[2018-10-20] MEDS: SUCRALFATE 1 GM/10 ML UDC PO SCH ×4 (07:00→20:58)
[2018-10-20] MEDS: PAROXETINE 10 MG TABLET PO SCH (08:31)
[2018-10-20] MEDS: HYDROmorphone 2MG TABLET PO PRN ×3 (08:31→20:58)
[2018-10-20 09:50] VITALS: BP 85/51
[2018-10-20 10:20] LABS: BASOPHILS % (AUTO) 0 % (0-1); EOSINOPHILS % (AUTO) 0 % (1-7); LYMPHOCYTES % (AUTO) 2 % (22-44); MD NO; MEAN CORPUSCULAR HEMOGLOBIN 31.9 pg (27.0-34.8); MEAN CORPUSCULAR HGB CONC 34.5 g/dL (32.4-35.8); MEAN CORPUSCULAR VOLUME 92.4 fL (80-100); MEAN PLATELET VOLUME 7.6 fL (7.4-10.4); MONOCYTES # (AUTO) 0.31 x10^3/uL (0.2-0.8); MONOCYTES % (AUTO) 6 % (2-9); NEUTROPHILS # (AUTO) 4.62 x10^3/uL (1.8-6.8); NEUTROPHILS % (AUTO) 92 % (42-75); PLATELET COUNT 108 x10^3/uL (130-400); RED CELL DISTRIBUTION WIDTH 13.4 % (9.6-15.2)
[2018-10-20 10:31] LABS: ALANINE AMINOTRANSFERASE 45 U/L (12-78); ALBUMIN 2.3 g/dL (3.4-5.0); ANION GAP 6 mmol/L (5-15); CALCIUM 7.4 mg/dL (8.5-10.1); CHLORIDE 110 mmol/L (98-107); CREATININE 0.49 mg/dL (0.55-1.02)
[2018-10-20 10:33] LABS: ALKALINE PHOSPHATASE 60 U/L (45-117); BILIRUBIN,TOTAL 0.2 mg/dL (0.2-1.0); TOTAL PROTEIN 4.8 g/dL (6.4-8.2)
[2018-10-20] MEDS ORDERED: HYDROmorphone 2 MG/ML, 1ML IVPush PRN (13:30)
[2018-10-20 13:59] VITALS: BP 110/68
[2018-10-20] MEDS: DEXAMETHASONE 4 MG TABLET PO SCH ×2 (15:55→20:58)
[2018-10-20] MEDS: LIDODERM 5% PATCH TD SCH (16:55)
[2018-10-20] MEDS: NICOTINE 7 MG/24 HR PATCH.TD24 TD SCH (16:55)
[2018-10-20] MEDS: HYDROmorphone 2 MG/ML, 1ML IVPush PRN ×3 (16:56→23:39)
[2018-10-20 20:51] VITALS: BP 103/69
[2018-10-21] MEDS: HYDROmorphone 2MG TABLET PO PRN ×2 (01:30→10:12)
[2018-10-21 01:36] VITALS: BP 115/77
[2018-10-21] MEDS: HYDROmorphone 2 MG/ML, 1ML IVPush PRN ×4 (04:04→19:38)
[2018-10-21] MEDS: PANTOPROZOLE 40MG TABLET PO SCH (06:05)
[2018-10-21] MEDS: GABAPENTIN 300 MG CAPSULE PO SCH ×4 (06:05→21:43)
[2018-10-21 07:23] VITALS: BP 113/69
[2018-10-21] MEDS: SUCRALFATE 1 GM/10 ML UDC PO SCH ×4 (10:11→21:43)
[2018-10-21] MEDS: DEXAMETHASONE 4 MG TABLET PO SCH ×3 (10:12→21:43)
[2018-10-21] MEDS: PAROXETINE 10 MG TABLET PO SCH (10:12)
[2018-10-21 16:53] VITALS: BP 107/65
[2018-10-21] MEDS: NICOTINE 7 MG/24 HR PATCH.TD24 TD SCH (17:27)
[2018-10-21] MEDS: LIDODERM 5% PATCH TD SCH (17:27)
[2018-10-21 19:40] VITALS: BP 103/66
[2018-10-21] MEDS: MELATONIN 5 MG TABLET PO PRN (21:43)
[2018-10-22] MEDS: HYDROmorphone 2MG TABLET PO PRN ×3 (01:44→16:52)
[2018-10-22 01:50] VITALS: BP 91/59
[2018-10-22] MEDS: PANTOPROZOLE 40MG TABLET PO SCH (06:07)
[2018-10-22] MEDS: HYDROmorphone 2 MG/ML, 1ML IVPush PRN ×2 (06:07→12:30)
[2018-10-22] MEDS: GABAPENTIN 300 MG CAPSULE PO SCH ×3 (06:07→16:52)
[2018-10-22 08:12] VITALS: BP 121/70
[2018-10-22] MEDS: PAROXETINE 10 MG TABLET PO SCH (09:23)
[2018-10-22] MEDS: DEXAMETHASONE 4 MG TABLET PO SCH ×2 (09:23→16:52)
[2018-10-22] MEDS: SUCRALFATE 1 GM/10 ML UDC PO SCH ×3 (09:23→16:52)
[2018-10-22] MEDS ORDERED: PANT40TA5 PO (12:07)
[2018-10-22] MEDS ORDERED: MELA5TAB19 PO (12:07)
[2018-10-22] MEDS ORDERED: MORP15TA3 PO (12:07)
[2018-10-22] MEDS ORDERED: SUCR1ORA5 PO (12:07)
[2018-10-22] MEDS ORDERED: HYDR2TAB40 PO (12:07)
[2018-10-22] MEDS ORDERED: DEXA4TAB66 PO (12:07)
[2018-10-22] MEDS ORDERED: GABA300C10 PO (12:07)
[2018-10-22 14:55] VITALS: BP 96/63
[2018-10-22] MEDS: LIDODERM 5% PATCH TD SCH (17:00)
[2018-10-22] MEDS: NICOTINE 7 MG/24 HR PATCH.TD24 TD SCH (17:02)
== END 2018-10-22 18:58 | disposition home health service (06) | DRG 597 ==
LOC: 3NW 13:28 → 4WST 10-13 13:58 → 3NW 10-16 10:34 → 4EST 10-19 17:52
PROVIDERS: ADMIT Internal Medicine; ATTEND Internal Medicine
DX: C50.919 Malignant neoplasm of unspecified site of unspecified female breast (principal); G93.6 Cerebral edema; E43 Unspecified severe protein-calorie malnutrition; C79.51 Secondary malignant neoplasm of bone; C79.31 Secondary malignant neoplasm of brain; B37.81 Candidal esophagitis; E83.52 Hypercalcemia; F17.210 Nicotine dependence, cigarettes, uncomplicated; G47.33 Obstructive sleep apnea (adult) (pediatric); G89.3 Neoplasm related pain (acute) (chronic); J44.9 Chronic obstructive pulmonary disease, unspecified; K20.8 Other esophagitis; K59.00 Constipation, unspecified; R13.10 Dysphagia, unspecified; T45.1X5A Adverse effect of antineoplastic and immunosuppressive drugs, initial encounter; Z66 Do not resuscitate; R00.1 Bradycardia, unspecified; M79.89 Other specified soft tissue disorders; R59.0 Localized enlarged lymph nodes; Y84.2 Radiological procedure and radiotherapy as the cause of abnormal reaction of the patient, or of later complication, without mention of misadventure at the time of the procedure; Z79.811 Long term (current) use of aromatase inhibitors; Z80.3 Family history of malignant neoplasm of breast; Z85.3 Personal history of malignant neoplasm of breast; Z90.710 Acquired absence of both cervix and uterus; Z90.49 Acquired absence of other specified parts of digestive tract; Z68.37 Body mass index [BMI] 37.0-37.9, adult
CPT/HCPCS: 36415; 70450; 71045; 74177; 80048; 80053; 80076; 82040; 83735; 84100; 84439; 84443; 85025; 85610; 93005; 93306; G0378; J1100; J1170; J1450; J2405; J2997; J3480; J3489; J9045; Q0162; Q9967; C9113; J1940; J2270; J7030; J7040; J7050